=== PATIENT | female | born 1980 | race Caucasian/White ===

== ENCOUNTER 2018-04-29 19:00 | Emergency (ER) | payer OTHER ==
[~2018-04-29] VITALS: Ht 154.9 cm; Wt 72.6 kg
[2018-04-29] MEDS ORDERED: BACTRIM DS TAB1 EACH PO (19:59)
[2018-04-29 20:43] VITALS: BP 114/71
== END 2018-04-29 20:45 | disposition home or self-care (01) ==
LOC: M.ERS 19:00
DX: J06.9 Acute upper respiratory infection, unspecified (principal); Z90.711 Acquired absence of uterus with remaining cervical stump; Z88.0 Allergy status to penicillin; Z88.8 Allergy status to other drugs, medicaments and biological substances

== ENCOUNTER 2018-05-01 08:27 | Inpatient (IN) | payer OTHER ==
[~2018-05-01] VITALS: Ht 154.9 cm; Wt 71.8 kg
[~2018-05-01 08:27] MED LIST: BACTRIM DS TAB1 EACH PO
[2018-05-01 08:29] VITALS: BP 128/74
[2018-05-01 09:07] LABS: ABSOLUTE BASOPHILS 0.1 thou/uL (0.0-0.2); ABSOLUTE EOSINOPHILS 0.8 thou/uL (0.0-0.7); ABSOLUTE LYMPHOCYTES 1.8 thou/uL (0.8-5.3); ABSOLUTE MONOCYTES 0.6 thou/uL (0.0-1.2); ABSOLUTE NEUTROPHILS 11.6 thou/uL (1.6-8.1); BASOPHILS 0.8 %; EOSINOPHILS 5.5 %; HEMATOCRIT 44.8 % (37.0-47.0); HEMOGLOBIN 15.3 gm/dL (12.0-15.0); LYMPHOCYTES 12.3 %; MCH 32.1 pg (26.0-34.0); MCHC 34.1 g/dL (28.0-37.0); MCV 94.1 fL (80.0-100.0); MONOCYTES 4.2 %; MPV 7.2 fl. (7.2-11.1); NUCLEATED RBCS 0 /100WBC; PLATELET COUNT* 245 thou/uL (150-400); POLYS 77.2 %; RBC 4.77 mil/uL (4.20-5.00)
[2018-05-01 09:14] LABS: ANION GAP 7 mmol/L (7-16); BUN 15 mg/dL (7-18); CALCIUM 8.7 mg/dL (8.5-10.1); CHLORIDE 105 mmol/L (98-107); CO2 24 mmol/L (21-32); CREATININE 1.1 mg/dL (0.6-1.3); GLUCOSE 94 mg/dL (70-99); POTASSIUM 4.2 mmol/L (3.5-5.1); SODIUM 136 mmol/L (136-145)
[2018-05-01 09:20] LABS: ALBUMIN 3.2 g/dL (3.4-5.0); ALKALINE PHOSPHATASE 59 U/L (46-116); SGOT 29 U/L (15-37); SGPT 22 U/L (30-65); TOTAL BILIRUBIN 0.3 mg/dL (<0.1-1.0); TOTAL PROTEIN 7.6 g/dL (6.4-8.2); TROPONIN-I LEVEL <0.06 ng/mL (<0.06)
[2018-05-01 10:57] VITALS: BP 110/70
[2018-05-01 11:05] VITALS: BP 117/69
[2018-05-01 15:32] VITALS: BP 117/62
[2018-05-01 20:00] VITALS: BP 126/56
[2018-05-02 00:35] VITALS: BP 125/58
[2018-05-02 04:24] LABS: HEMATOCRIT 40.8 % (37.0-47.0); HEMOGLOBIN 13.7 gm/dL (12.0-15.0); MCH 31.9 pg (26.0-34.0); MCHC 33.6 g/dL (28.0-37.0); MCV 94.8 fL (80.0-100.0); MPV 7.9 fl. (7.2-11.1); RBC 4.31 mil/uL (4.20-5.00); RDW-CV 13.3 % (10.5-14.5)
[2018-05-02 04:30] VITALS: BP 116/62
[2018-05-02 04:58] LABS: CREATININE 1.1 mg/dL (0.6-1.3); MAGNESIUM 1.8 mg/dL (1.8-2.4); POTASSIUM 3.8 mmol/L (3.5-5.1)
[2018-05-02 09:21] VITALS: BP 108/49
--- NOTE | 2018-05-02 11:05 | EKG ---
[place] [address] ELECTROCARDIOGRAM REPORT Name: RASTA LONDON Room: [address] ADM IN M.R.#: [id number] Admission: 05/01/18 Attend Phys: Archie Byrd, Discharge: Date of : 76 Report #: [id number] THIS REPORT FOR: //name// [facility] ED Test Date: 2018-05-01 Test Time: 08:58:02 Pat Name: RASTA LONDON Department: Room: [facility] Gender: F Trauma Director: : 1980 Requested By: Faustino Kumar Order Number: [id number] MD: Gary Borja Measurements Intervals [place] Rate: 80 P: 43 MT: 162 QRS: 42 QRSD: 87 T: 27 QT: 381 QTc: 440 Interpretive Statements Sinus rhythm Baseline wander in lead(s) V4,V5,V6 No previous ECG available for comparison Electronically Signed On 05-02-2018 11:05:33 CDT by Gary Borja [email or web address] <ELECTRONICALLY SIGNED> By: Gary Borja MD, [facility] 05/02/18 1105 Gary Borja MD, [facility] /EPI
[2018-05-02 16:00] VITALS: BP 111/56
[2018-05-02 20:20] VITALS: BP 106/60
[2018-05-03 04:28] LABS: HEMATOCRIT 41.6 % (37.0-47.0); HEMOGLOBIN 13.9 gm/dL (12.0-15.0); MCH 31.4 pg (26.0-34.0); MCHC 33.4 g/dL (28.0-37.0); MCV 94.1 fL (80.0-100.0); MPV 7.7 fl. (7.2-11.1); NUCLEATED RBCS 0 /100WBC; PLATELET COUNT* 288 thou/uL (150-400); RBC 4.42 mil/uL (4.20-5.00); RDW-CV 13.5 % (10.5-14.5)
[2018-05-03 05:04] LABS: ALBUMIN 2.9 g/dL (3.4-5.0); CALCIUM 9.2 mg/dL (8.5-10.1); CREATININE 1.1 mg/dL (0.6-1.3); TOTAL BILIRUBIN 0.2 mg/dL (<0.1-1.0); TOTAL PROTEIN 7.3 g/dL (6.4-8.2)
[2018-05-03 05:36] LABS: ABSOLUTE LYMPHOCYTES 0.8 thou/uL (0.8-5.3); ABSOLUTE MONOCYTES 0.4 thou/uL (0.0-1.2); ABSOLUTE NEUTROPHILS 19.7 thou/uL (1.6-8.1); ANISOCYTOSIS 1+; PLATELET ESTIMATE ADEQUATE; POIKILOCYTOSIS 1+
[2018-05-03 07:50] VITALS: BP 115/59
[2018-05-03 16:03] VITALS: BP 110/68
[2018-05-03 21:00] VITALS: BP 123/69
[2018-05-04 04:43] LABS: ABSOLUTE LYMPHOCYTES 1.4 thou/uL (0.8-5.3); ABSOLUTE MONOCYTES 0.5 thou/uL (0.0-1.2); ABSOLUTE NEUTROPHILS 14.9 thou/uL (1.6-8.1); BASOPHILS 0.2 %; HEMATOCRIT 41.4 % (37.0-47.0); HEMOGLOBIN 13.8 gm/dL (12.0-15.0); LYMPHOCYTES 8.4 %; MCH 31.6 pg (26.0-34.0); MCHC 33.3 g/dL (28.0-37.0); MCV 94.9 fL (80.0-100.0); MONOCYTES 2.8 %; MPV 7.3 fl. (7.2-11.1); NUCLEATED RBCS 0 /100WBC; PLATELET COUNT* 296 thou/uL (150-400); POLYS 88.6 %; RBC 4.36 mil/uL (4.20-5.00); RDW-CV 13.6 % (10.5-14.5); WBC 16.8 thou/uL (4.0-11.0)
[2018-05-04 06:07] LABS: ALBUMIN 2.9 g/dL (3.4-5.0); CALCIUM 9.2 mg/dL (8.5-10.1); CREATININE 0.9 mg/dL (0.6-1.3); POTASSIUM 4.4 mmol/L (3.5-5.1); TOTAL BILIRUBIN 0.2 mg/dL (<0.1-1.0); TOTAL PROTEIN 6.6 g/dL (6.4-8.2)
[2018-05-04 08:20] VITALS: BP 118/69
[2018-05-04] MEDS ORDERED: LEVAQUIN 750 M750 MG PO (09:34)
[2018-05-04] MEDS ORDERED: PREDNISONE 10 M10 MG PO (09:35)
[2018-05-04] MEDS ORDERED: PROTONIX40 M1 PO (09:35)
[2018-05-04] MEDS ORDERED: FLONASE 0.05%50 MCG NASAL (09:36)
[2018-05-04] MEDS ORDERED: TESSALON PERLE100 M1 PO (09:37)
[2018-05-04] MEDS ORDERED: LEVALBUTER1.25 MG/0. INH (09:37)
[2018-05-04 09:39] VITALS: BP 118/69
== END 2018-05-04 15:32 | disposition home or self-care (01) | DRG 177 ==
LOC: M.ERS 08:27 → M.TBA-ER 10:19 → M.ORTHSURG 10:19
PROVIDERS: Emergency Medicine Emergency Medical Services; Internal Medicine; ADMIT Family Medicine
DX: J15.6 Pneumonia due to other Gram-negative bacteria (principal); J96.01 Acute respiratory failure with hypoxia; R65.11 Systemic inflammatory response syndrome (SIRS) of non-infectious origin with acute organ dysfunction; F17.210 Nicotine dependence, cigarettes, uncomplicated; J98.01 Acute bronchospasm; Z90.711 Acquired absence of uterus with remaining cervical stump; Z88.0 Allergy status to penicillin; Z88.8 Allergy status to other drugs, medicaments and biological substances; Z79.899 Other long term (current) drug therapy